=== PATIENT | male | born 1970 | race Hispanic/Latino ===

== ENCOUNTER 2022-11-05 13:27 | Emergency (ER) | payer BC ==
[2022-11-05] MEDS ORDERED: Ketorolac Tromethamine 60 MG/2 ML VIAL ONE (14:10)
== END 2022-11-05 14:43 | disposition home or self-care (01) ==
LOC: NAV ERS 13:27
DX: M19.012 Primary osteoarthritis, left shoulder (principal)
CPT/HCPCS: 96372; 99283; J1885